=== PATIENT | male | born 1985 | race Caucasian/White ===

== ENCOUNTER 2020-04-29 15:27 | Inpatient (IN) | payer SELFPAY ==
[~2020-04-29] VITALS: Ht 182.9 cm; Wt 96.2 kg
[~2020-04-29 15:27] MED LIST: CLINDAMYCIN PHOSPHATE 900 MG/6 ML VIAL IM ONE; DEXAMETHASONE SOD PHOSPHATE 4 MG INJ IV ONE; GLYCOPYRROLATE 0.2 MG/ML VIAL IJ ONE; LIDOCAINE-MPF 2% 5 ML VIAL IJ ONE; METOCLOPRAMIDE HCL 10 MG/2 ML VIAL IV ONE; NEOSTIGMINE METHYLSULFATE 10 MG/10 ML VIAL IM ONE; ONDANSETRON 4 MG/2 ML VIAL IV ONE; PROPOFOL 200 MG/20 ML BOTTLE IV ONE; SEVOFLURANE 250 ML BOTTLE IH ONE
--- NOTE | 2020-04-29 16:23 | NUR ---
PT IS IN ROOM #1A. DR KOEHLER EVALUATED THE PT.
[2020-04-29 17:34] LABS: BASOPHILS # (AUTO) 0.1 K/uL (0.0-8.0); BASOPHILS % (AUTO) 0.6 % (0.0-2.0); EOSINOPHILS # (AUTO) 0.1 K/uL (0.0-0.7); EOSINOPHILS % (AUTO) 0.6 % (0.0-7.0); HEMOGLOBIN 15.6 g/dL (12.5-16.3); LYMPHOCYTES # (AUTO) 2.5 K/uL (20.0-40.0); LYMPHOCYTES % (AUTO) 14.8 % (20.5-51.5); MEAN CORPUSCULAR HEMOGLOBIN 30.9 uug (23.8-33.4); MEAN CORPUSCULAR HGB CONC 35 g/dL (32.5-36.3); MEAN CORPUSCULAR VOLUME 89.3 fL (73.0-96.2); MONOCYTES # (AUTO) 0.9 K/uL (2.0-10.0); MONOCYTES % (AUTO) 5.6 % (0.0-11.0); NEUTROPHILS # (AUTO) 13.1 K/uL (1.8-8.9); NEUTROPHILS % (AUTO) 78.4 % (38.5-71.5); PLATELET COUNT (AUTO) 262 K/uL (152-348); RED BLOOD CELL COUNT(AUTO) 5.04 MIL/uL (4.06-5.63); WHITE BLOOD COUNT (AUTO) 16.7 K/uL (3.6-10.2)
[2020-04-29 17:42] LABS: CARBON DIOXIDE 27 mmol/L (21-32); CHLORIDE 100 mmol/L (98-107); CREATININE 0.8 mg/dL (0.6-1.3); GLUCOSE 128 mg/dL (74-106); POTASSIUM 3.6 mmol/L (3.5-5.1); UREA NITROGEN, BLOOD 14 mg/dL (7-18)
[2020-04-29 17:55] LABS: ALANINE AMINOTRANSFERASE 143 U/L (16-63); ALKALINE PHOSPHATASE 74 U/L (50-136); ASPARTATE AMINOTRANSFERASE 44 U/L (15-37); BILIRUBIN,DIRECT < 0.1 mg/dL (0.0-0.2); BILIRUBIN,TOTAL 0.3 mg/dL (0.2-1.0); TOTAL PROTEIN, SERUM 8.2 g/dL (6.4-8.2)
[2020-04-29] MEDS ORDERED: HYDROMORPHONE 1 MG/1 ML DISP.SYRIN IV ONE (19:00)
[2020-04-29] MEDS ORDERED: ONDANSETRON 4 MG/2 ML VIAL IV ONE (19:00)
--- NOTE | 2020-04-29 19:11 | NUR ---
REPORT GIVEN TO DRUM SEALERCLOTHES SHAKER.
[2020-04-29] MEDS ORDERED: HYDROMORPHONE 1 MG/1 ML DISP.SYRIN ONE (19:23)
[2020-04-29] MEDS ORDERED: ONDANSETRON 4 MG/2 ML VIAL ONE (19:23)
[2020-04-29] MEDS ORDERED: ETOMIDATE 20 MG/10 ML VIAL ONE ×2 (19:33→19:56)
--- NOTE | 2020-04-29 19:40 | NUR ---
Dr. Brown, 2RNs, Respiratory therapist at bedside. Consent signed for moderate sedation for chest tube insertion.
[2020-04-29] MEDS ORDERED: ETOMIDATE 20 MG/10 ML VIAL IV ONE (19:45)
[2020-04-29] MEDS: ETOMIDATE 20 MG/10 ML VIAL IV ONE ×2 (19:45→19:54)
--- NOTE | 2020-04-29 20:15 | NUR ---
Chest tube inserted by Dr. Brown. xray at [facility] procedure
--- NOTE | 2020-04-29 20:57 | NUR ---
Adria Leone ADJUTANT GENERAL at bedside
[2020-04-29] MEDS ORDERED: MAGNESIUM HYDROXIDE 30 ML LIQUID UDC PO PRN (21:30)
[2020-04-29] MEDS ORDERED: CEFTRIAXONE 1 G in IV DEXTROSE 5% 50 ML IV SCH (21:30)
[2020-04-29] MEDS ORDERED: ONDANSETRON 4 MG/2 ML VIAL IV PRN (21:30)
[2020-04-29] MEDS: MORPHINE SULFATE 2 MG/1 ML DISP.SYRIN IV PRN (21:40)
--- NOTE | 2020-04-29 21:53 | NUR ---
Pt. admitted to Telemetry, under care of Adria Leone. Diagnosis: Spontaneous Pneumothorax. Belongs List completed. Report given to inpatient nurse
[2020-04-29 23:30] VITALS: BP 137/80
[2020-04-30] MEDS: HYDROCODONE/APAP 5-325MG TABLET PO PRN (00:13)
[2020-04-30] MEDS: DOCUSATE SODIUM 100 MG CAPSULE PO SCH (02:41)
[2020-04-30 04:00] VITALS: BP 145/90
--- NOTE | 2020-04-30 06:52 | NUR ---
Patient was titrated down from 4L to Room air. No respiratory distress noted, no dyspnea reported, no SOB noted. 97% on RA. Lung sounds remain severely diminished in lower lobes.
[2020-04-30 08:22] LABS: BASOPHILS % (AUTO) 0.3 % (0.0-2.0); EOSINOPHILS % (AUTO) 0.5 % (0.0-7.0); HEMATOCRIT 42.3 % (36.7-47.1); HEMOGLOBIN 14.5 g/dL (12.5-16.3); LYMPHOCYTES # (AUTO) 2.2 K/uL (20.0-40.0); LYMPHOCYTES % (AUTO) 23.7 % (20.5-51.5); MEAN CORPUSCULAR HEMOGLOBIN 31.3 uug (23.8-33.4); MEAN CORPUSCULAR HGB CONC 34 g/dL (32.5-36.3); MONOCYTES # (AUTO) 0.8 K/uL (2.0-10.0); MONOCYTES % (AUTO) 8.5 % (0.0-11.0); NEUTROPHILS # (AUTO) 6.3 K/uL (1.8-8.9); PLATELET COUNT (AUTO) 218 K/uL (152-348); RED BLOOD CELL COUNT(AUTO) 4.65 MIL/uL (4.06-5.63); WHITE BLOOD COUNT (AUTO) 9.4 K/uL (3.6-10.2)
[2020-04-30 08:29] LABS: BILIRUBIN,TOTAL 0.5 mg/dL (0.2-1.0); CREATININE 0.9 mg/dL (0.6-1.3); MAGNESIUM 2.4 mg/dL (1.8-2.4); PHOSPHOROUS 3.9 mg/dL (2.5-4.9); POTASSIUM 3.5 mmol/L (3.5-5.1); TOTAL PROTEIN, SERUM 7.2 g/dL (6.4-8.2)
[2020-04-30 08:38] LABS: THYROID STIMULATING HORMONE 2.327 mIU/mL (0.358-3.740)
[2020-04-30 12:04] VITALS: BP 117/72
[2020-04-30 15:57] VITALS: BP 122/74
--- NOTE | 2020-04-30 19:00 | NUR ---
Patient received from AM nurse. No reports of pain, no distress. Patients chest tube in place, dressing dry. O2 @ 6L via Nasal Canula. Non-remarkable findings relative to this patient upon assessment. No dyspnea. Afebrile. Patient educated to call for help and use urinal. Will continue to monitor and assess.
[2020-04-30 20:12] VITALS: BP 126/69
[2020-05-01 04:15] VITALS: BP 113/80
--- NOTE | 2020-05-01 05:18 | NUR ---
Patient is a pleasant 34 y/o male. Slept great throughout the night. No calls for pain medication, no reports of pain/distress. Only awakening to ask for a blanket. Chest tube in place on right side, 20 slovenian, dry and intact. Draining into the pleural-evac drain, no kinks, or leaks. O2 running at 6L via Nasal Canula per MD order. Will endorse to AM nurse.
[2020-05-01 06:43] LABS: BASOPHILS % (AUTO) 0.2 % (0.0-2.0); EOSINOPHILS # (AUTO) 0.1 K/uL (0.0-0.7); EOSINOPHILS % (AUTO) 1.2 % (0.0-7.0); HEMATOCRIT 44.1 % (36.7-47.1); HEMOGLOBIN 15.1 g/dL (12.5-16.3); LYMPHOCYTES # (AUTO) 2.5 K/uL (20.0-40.0); LYMPHOCYTES % (AUTO) 23.8 % (20.5-51.5); MEAN CORPUSCULAR HEMOGLOBIN 31.3 uug (23.8-33.4); MEAN CORPUSCULAR HGB CONC 34 g/dL (32.5-36.3); MEAN CORPUSCULAR VOLUME 91.5 fL (73.0-96.2); MONOCYTES # (AUTO) 0.7 K/uL (2.0-10.0); MONOCYTES % (AUTO) 6.4 % (0.0-11.0); NEUTROPHILS # (AUTO) 7.2 K/uL (1.8-8.9); NEUTROPHILS % (AUTO) 68.4 % (38.5-71.5); PLATELET COUNT (AUTO) 233 K/uL (152-348); RED BLOOD CELL COUNT(AUTO) 4.82 MIL/uL (4.06-5.63); WHITE BLOOD COUNT (AUTO) 10.5 K/uL (3.6-10.2)
[2020-05-01 06:54] LABS: CREATININE 0.9 mg/dL (0.6-1.3); POTASSIUM 4.3 mmol/L (3.5-5.1)
--- NOTE | 2020-05-01 10:00 | NUR ---
PATIENT C/O DRY NOSTRILS. HUMIDIFIER PLACED ON. INSTRUCTED GROUP HOME WORKER WANTS HIM TO BE ON 6L. MED PO FOR C/O PAIN RIGHT CHEST WITH GOOD EFFECT AFTER 45 MINUTES.
[2020-05-01] MEDS: HYDROCODONE/APAP 5-325MG TABLET PO PRN ×2 (11:16→20:46)
[2020-05-01 11:54] VITALS: BP 124/75
--- NOTE | 2020-05-01 12:30 | NUR ---
C/O CHEST PAIN AND SOB. SEEN BY DR. TARIQ. CXR & EKG DONE STAT. LUIS DAI HERE. C/O CONSTIPATION. INSTRUCTED TO WAIT FOR ORDERS FOR LAXATIVE. INSTRUCTED NOT TO BEAR DOWN. VERBALIZED UNDERSTANDING.
--- NOTE | 2020-05-01 13:30 | NUR ---
RESULTS OF CXR AND EKG ACKNOLEDGED BY MDS. CT ORDERED.
[2020-05-01] MEDS ORDERED: BISACODYL 5 MG TABLET.DR PO ONE (14:00)
[2020-05-01] MEDS ORDERED: DOCUSATE SODIUM 100 MG CAPSULE PO SCH (14:00)
[2020-05-01] MEDS ORDERED: MAGNESIUM HYDROXIDE 30 ML LIQUID UDC PO ONE (14:00)
--- NOTE | 2020-05-01 15:00 | NUR ---
WORRIED & UPSET THAT HE HAS NO INSURANCE. HE WILL NOT BE ABLE TO PAY, & HAS NO JOB. TYLER CALLED & PATIENT ASSURED THAT EMERGENCY MEDICAL HAS BEEN INITIATED FOR HIM.
[2020-05-01] MEDS ORDERED: LACTULOSE 20 G/30 ML LIQUID UDC PO ONE (15:15)
[2020-05-01 15:45] VITALS: BP 117/72
[2020-05-01 20:00] VITALS: BP 123/70
[2020-05-01] MEDS ORDERED: diphenhydrAMINE 50 MG CAPSULE PO PRN (20:00)
[2020-05-01] MEDS: DOCUSATE SODIUM 100 MG CAPSULE PO SCH (20:46)
[2020-05-02] VITALS: BP 136/76
--- NOTE | 2020-05-02 01:36 | NUR ---
had a BM; bed bath rendered by CALL WORKER PERSON.
--- NOTE | 2020-05-02 07:00 | NUR ---
Received patient in stable condition. Will continue to monitor, continue plan of care, and assess.
--- NOTE | 2020-05-02 07:00 | NUR ---
Pt rested well in between care; no acute distress; placed on continuous pulse ox; medicated pt's pain x1; needs attended;
[2020-05-02 07:26] LABS: CREATININE 0.8 mg/dL (0.6-1.3); POTASSIUM 3.9 mmol/L (3.5-5.1)
[2020-05-02 07:29] LABS: BASOPHILS % (AUTO) 0.4 % (0.0-2.0); EOSINOPHILS # (AUTO) 0.1 K/uL (0.0-0.7); EOSINOPHILS % (AUTO) 1.4 % (0.0-7.0); HEMATOCRIT 42.5 % (36.7-47.1); HEMOGLOBIN 14.6 g/dL (12.5-16.3); LYMPHOCYTES # (AUTO) 2.2 K/uL (20.0-40.0); LYMPHOCYTES % (AUTO) 22.2 % (20.5-51.5); MEAN CORPUSCULAR HEMOGLOBIN 31.2 uug (23.8-33.4); MEAN CORPUSCULAR HGB CONC 35 g/dL (32.5-36.3); MEAN CORPUSCULAR VOLUME 90.4 fL (73.0-96.2); MONOCYTES # (AUTO) 0.7 K/uL (2.0-10.0); MONOCYTES % (AUTO) 6.9 % (0.0-11.0); NEUTROPHILS # (AUTO) 6.9 K/uL (1.8-8.9); NEUTROPHILS % (AUTO) 69.1 % (38.5-71.5); PLATELET COUNT (AUTO) 230 K/uL (152-348)
--- NOTE | 2020-05-02 08:00 | NUR ---
Received call from Dr. Schofield in radiology that patients Right Pneumothorax has worsened. Contacted Dr. Friend and Dr. Collins with news. Will follow up BRITTANY
--- NOTE | 2020-05-02 08:05 | NUR ---
Patients chest tube was dislodged and the drainage system wasnt functioning as intended. Problem fixed. Will continue to monitor, continue plan of care, and assess.
[2020-05-02 12:00] VITALS: BP 125/77
--- NOTE | 2020-05-02 12:29 | NUR ---
CXR results and findings are in: "Near complete resolution of right-sided pneumothorax with chest tube remains in place". Will continue to monitor and assess.
[2020-05-02 14:00] VITALS: BP 122/79
[2020-05-02 16:00] VITALS: BP 122/79
[2020-05-02 19:51] VITALS: BP 133/85
[2020-05-02] MEDS: DOCUSATE SODIUM 100 MG CAPSULE PO SCH (20:35)
[2020-05-03 00:42] VITALS: BP 130/75
[2020-05-03 05:15] VITALS: BP 118/73
[2020-05-03 06:30] LABS: BASOPHILS % (AUTO) 0.5 % (0.0-2.0); EOSINOPHILS # (AUTO) 0.3 K/uL (0.0-0.7); EOSINOPHILS % (AUTO) 3.8 % (0.0-7.0); HEMATOCRIT 42.3 % (36.7-47.1); HEMOGLOBIN 14.8 g/dL (12.5-16.3); LYMPHOCYTES # (AUTO) 2.7 K/uL (20.0-40.0); LYMPHOCYTES % (AUTO) 31.6 % (20.5-51.5); MEAN CORPUSCULAR HEMOGLOBIN 31.6 uug (23.8-33.4); MEAN CORPUSCULAR HGB CONC 35 g/dL (32.5-36.3); MEAN CORPUSCULAR VOLUME 90.2 fL (73.0-96.2); MONOCYTES # (AUTO) 0.7 K/uL (2.0-10.0); MONOCYTES % (AUTO) 7.7 % (0.0-11.0); NEUTROPHILS # (AUTO) 4.8 K/uL (1.8-8.9); NEUTROPHILS % (AUTO) 56.4 % (38.5-71.5); PLATELET COUNT (AUTO) 230 K/uL (152-348); RED BLOOD CELL COUNT(AUTO) 4.69 MIL/uL (4.06-5.63); WHITE BLOOD COUNT (AUTO) 8.5 K/uL (3.6-10.2)
--- NOTE | 2020-05-03 06:31 | NUR ---
pt transferred to room 304; no acute distress; VSS; denies any pain; oscillation on the chest tube noted; continue to monitor; continue plan of care.
[2020-05-03 06:58] LABS: CREATININE 0.9 mg/dL (0.6-1.3); POTASSIUM 3.7 mmol/L (3.5-5.1)
[2020-05-03 10:11] LABS: IMMUNOGLOBULIN E, TOTAL 73 IU/mL (6-495)
[2020-05-03 12:00] VITALS: BP 112/67
[2020-05-03 16:00] VITALS: BP 122/73
[2020-05-03 20:13] VITALS: BP 119/73
[2020-05-03] MEDS: DOCUSATE SODIUM 100 MG CAPSULE PO SCH (20:17)
--- NOTE | 2020-05-03 20:59 | NUR ---
Received patient resting in bed. AAOx4. No s/s of acute distress noted at this time. Pt on 6L NC denies SOB and pain. Right side chest tube intact, dressing is dry. Right AC IV patent and intact. nuclear monitoring technician in place NSR. Safety measures in place and will continue to monitor.
[2020-05-04 00:03] VITALS: BP 120/80
[2020-05-04 05:32] VITALS: BP 111/75
[2020-05-04 07:09] LABS: BASOPHILS % (AUTO) 0.5 % (0.0-2.0); EOSINOPHILS # (AUTO) 0.3 K/uL (0.0-0.7); EOSINOPHILS % (AUTO) 4.1 % (0.0-7.0); HEMATOCRIT 41.7 % (36.7-47.1); HEMOGLOBIN 14.4 g/dL (12.5-16.3); LYMPHOCYTES # (AUTO) 2.3 K/uL (20.0-40.0); LYMPHOCYTES % (AUTO) 30.7 % (20.5-51.5); MEAN CORPUSCULAR HEMOGLOBIN 31.1 uug (23.8-33.4); MEAN CORPUSCULAR HGB CONC 35 g/dL (32.5-36.3); MEAN CORPUSCULAR VOLUME 90.2 fL (73.0-96.2); MONOCYTES # (AUTO) 0.5 K/uL (2.0-10.0); MONOCYTES % (AUTO) 6.8 % (0.0-11.0); NEUTROPHILS # (AUTO) 4.4 K/uL (1.8-8.9); NEUTROPHILS % (AUTO) 57.9 % (38.5-71.5); PLATELET COUNT (AUTO) 240 K/uL (152-348); RED BLOOD CELL COUNT(AUTO) 4.62 MIL/uL (4.06-5.63); WHITE BLOOD COUNT (AUTO) 7.6 K/uL (3.6-10.2)
[2020-05-04 07:23] LABS: CREATININE 0.9 mg/dL (0.6-1.3)
--- NOTE | 2020-05-04 09:15 | NUR ---
PATIENT SEEN AND EXAMINED BY DR ALMARAZ WITH NEW ORDERS AND NOTED
[2020-05-04 11:49] VITALS: BP 123/87
--- NOTE | 2020-05-04 14:00 | NUR ---
ASSISTED TO THE BEDSIDE COMMODE PATIENT HAD AN EXTRA LARGE BOWEL MOVEMENT AND BACK TO BED CHEST TUBE INTACT WITH WATER ADDED TO LEVEL OF 20 OXYGEN IN PROGRESS ORDERED WITH NO SOB NOT IN DISTRESS AT THIS TIME
[2020-05-04 15:44] VITALS: BP 123/70
--- NOTE | 2020-05-04 20:00 | NUR ---
Report received. Patient CARLOS NAD noted. R Chest tube to water sealed suction; with minimal sanguineous drainage. No crepitus noted. Patient with soreness to chest tube site; refused any pain medication for now. Plan of care discussed; patient verbalized understanding. O2 6L NC continuously. Addendum: 05/04/20 at 2350 by FLORIDALMA MEDINA RN Amended: Links added.
[2020-05-04] MEDS: DOCUSATE SODIUM 100 MG CAPSULE PO SCH (20:19)
[2020-05-04 20:34] VITALS: BP 131/81
[2020-05-05 00:40] VITALS: BP 122/74
[2020-05-05 04:00] VITALS: BP 123/75
--- NOTE | 2020-05-05 06:44 | NUR ---
Uneventful night. VS stable. Chest tube continuously to water sealed suction. No air leaks, no subcutaneous emphysema. Dressing dry and intact.
[2020-05-05 07:02] LABS: BASOPHILS % (AUTO) 0.5 % (0.0-2.0); EOSINOPHILS # (AUTO) 0.3 K/uL (0.0-0.7); EOSINOPHILS % (AUTO) 3.7 % (0.0-7.0); HEMATOCRIT 39.9 % (36.7-47.1); HEMOGLOBIN 13.9 g/dL (12.5-16.3); LYMPHOCYTES # (AUTO) 2.2 K/uL (20.0-40.0); LYMPHOCYTES % (AUTO) 26.2 % (20.5-51.5); MEAN CORPUSCULAR HEMOGLOBIN 31.2 uug (23.8-33.4); MEAN CORPUSCULAR HGB CONC 35 g/dL (32.5-36.3); MEAN CORPUSCULAR VOLUME 89.6 fL (73.0-96.2); MONOCYTES # (AUTO) 0.6 K/uL (2.0-10.0); MONOCYTES % (AUTO) 7.3 % (0.0-11.0); NEUTROPHILS # (AUTO) 5.2 K/uL (1.8-8.9); NEUTROPHILS % (AUTO) 62.3 % (38.5-71.5); PLATELET COUNT (AUTO) 238 K/uL (152-348); RED BLOOD CELL COUNT(AUTO) 4.45 MIL/uL (4.06-5.63); WHITE BLOOD COUNT (AUTO) 8.3 K/uL (3.6-10.2)
[2020-05-05 07:29] LABS: CREATININE 0.9 mg/dL (0.6-1.3); POTASSIUM 3.9 mmol/L (3.5-5.1)
[2020-05-05 11:31] VITALS: BP 126/77
--- NOTE | 2020-05-05 14:33 | NUR ---
patient is alert, oriented x4, verbally responsive, no sob, resp even nonlabored, skin warm and dry to touch, chest tube intact, suction is off, no distress noted.
[2020-05-05 16:00] VITALS: BP 116/72
--- NOTE | 2020-05-05 18:20 | NUR ---
no drainage noted from the chest tube during shift, suction is off as ordered by dr walker
--- NOTE | 2020-05-05 18:24 | NUR ---
patient is alert, oriented x4, verbally responsive, no sob, resp even nonlabored, skin warm and dry to touch, no distress noted, able to tolerate meals, no nausea, no vomiting, continue to monitor
[2020-05-05] MEDS: DOCUSATE SODIUM 100 MG CAPSULE PO SCH (20:11)
[2020-05-05] MEDS: HYDROCODONE/APAP 5-325MG TABLET PO PRN (20:14)
[2020-05-05 20:24] VITALS: BP 137/84
[2020-05-06] VITALS: BP 117/70
[2020-05-06 04:00] VITALS: BP 125/81
--- NOTE | 2020-05-06 07:16 | NUR ---
pt rested well; uneventful night; c/o pain x1 and medicated with Joanna.
[2020-05-06 07:34] VITALS: BP 114/71
--- NOTE | 2020-05-06 09:12 | NUR ---
Chest tube clamped per Dr. Collins's order. Will continue monitor
[2020-05-06 11:01] VITALS: BP 112/58
[2020-05-06] MEDS ORDERED: HYDROCODONE/APAP 5-325MG TABLET PO PRN (12:30)
[2020-05-06] MEDS ORDERED: KETOROLAC TROMETHAMINE 15 MG INJ IVP ONE (12:45)
[2020-05-06] MEDS: DOCUSATE SODIUM 100 MG CAPSULE PO SCH ×2 (13:26→20:04)
[2020-05-06 15:34] VITALS: BP 108/63
--- NOTE | 2020-05-06 19:30 | NUR ---
RECEIVED PT AWAKE, ALERT AND ORIENTEDX4. PT IN NO ACUTE DISTRESS. PT IN 6L OXYGEN VIA NASAL CANNULA. PT BREATHING WITH NO DISTRESS. CHEST TUBE CLAMP. NO AIR LEAK SEEN.IV INTACT. SAFETY AND COMFORT PROVIDED. WILL CONTINUE TO MONITOR.
--- NOTE | 2020-05-06 19:38 | NUR ---
Patient stable throughout shift, on O2 @ 6L with no SOB or distress, Chest tube clamped and complained only of slight pain on right chest when trying to burp but alleviated with Toradol. On tele SR, denied chest pain. no other complaints at this time
[2020-05-06 20:03] VITALS: BP 118/78
[2020-05-06] MEDS: MORPHINE SULFATE 2 MG/1 ML DISP.SYRIN IV PRN (23:58)
[2020-05-07] VITALS (10 sets, daily range): BP systolic 114–151; BP diastolic 65–88
--- NOTE | 2020-05-07 00:30 | NUR ---
MORPHINE 2MG PRN GIVEN FOR 6/10 PAIN ON RIGHT SHOULDER, CLAVICLE AND CHEST. PT TOLERATED IT WELL. AFTER 30 MINUTES PT STATED HE FELT BETTER AND PAIN MEDICATION WOULD MAKE HIM FEEL COMFORTABLE WHILE SLEEPING.PT STABLE. WILL CONTINUE TO MONITOR.
--- NOTE | 2020-05-07 06:17 | NUR ---
PT SLEPT COMFORTABLY.PT IN NO ACUTE RESPIRATORY DISTRESS.CHEST TUBE CLAMPED. PRESCRIBED MEDICATION GIVEN AND PT TOLERATED IT WELL. SAFETY AND COMFORT PROVIDED. ALL NEEDS ARE MET. WILL ENDORSE TO INCOMING NURSE FOR CONTINUITY OF CARE.
[2020-05-07] MEDS: DOCUSATE SODIUM 100 MG CAPSULE PO SCH ×2 (08:46→20:33)
[2020-05-07] MEDS: NEOMY/BACITRAC/POLYMI OINT 28.35 GM TUBE TOP SCH (09:34)
--- NOTE | 2020-05-07 14:25 | NUR ---
Pt SOB, complaining of pressure on right rib that worsens with breathing. Mining Manager and pulmo notified. Stat cxray ordered and carried out.
--- NOTE | 2020-05-07 16:15 | NUR ---
CXR resulted. Pt put on 15L o2 nonrebreather w/ spo2 >93%. Pt appear comfortable at this time. Awaiting orders
[2020-05-07] MEDS ORDERED: HYDROMORPHONE 1 MG/1 ML DISP.SYRIN IVP ONE (17:30)
[2020-05-07] MEDS ORDERED: ONDANSETRON 4 MG/2 ML VIAL IV ONE (17:30)
--- NOTE | 2020-05-07 18:20 | NUR ---
Patient is transfer from the tele floor on non-rebreather stable at this time saturation of 95%. howie was able to talk to patient and inform plan of care. Cardiothoracic Dr. Magana has been consulted and plan for surgery tomorrow. Transferred to ICU for any worsening symptoms and if need call ER for Chest tube placement of pigtail if any worsening. Patient will be NPO after midnight. Will continue monitoring patient.
[2020-05-07] MEDS ORDERED: IV NS 1000 ML 1,000 ML IV PRN (19:45)
[2020-05-07] MEDS: ACETAMINOPHEN 325 MG TABLET PO PRN (19:59)
--- NOTE | 2020-05-07 20:00 | NUR ---
RECEIVED PT. ALERT & ORIENTED X4. ON O2 @ 100% NRM W/ O2 SAT OF 98%. NO SOB NOTED @ THIS TIME. HEP LOCK INTACT & PATENT ON RAC. TEMP-100.3 AXILLARY, TYLENOL 650MG GIVEN PO ORDERED. PT DRINKING FLUIDS ADEQ. WILL NPO AFTER MIDNIGHT. NOT IN ANY DISTRESS.
--- NOTE | 2020-05-07 22:00 | NUR ---
REPOSITIONED SELF. NOT IN ANY DISTRESS.
[2020-05-08] VITALS (20 sets, daily range): BP systolic 113–154; BP diastolic 56–89
--- NOTE | 2020-05-08 | NUR ---
NPO AFTER MN. V/S STABLE. AFEBRILE.
--- NOTE | 2020-05-08 04:00 | NUR ---
AM CARE DONE BY HIMSELF W/ MINIMAL ASSIST. ORAL CARE DONE. REPOSITIONED BY HIMSELF W/ HOB ELEVATED.
--- NOTE | 2020-05-08 05:36 | NUR ---
RESTING QUITELY. V/S STABLE. NOT IN ANY DISTRESS.
--- NOTE | 2020-05-08 06:30 | NUR ---
CALLED DR COTO RE:CXR RESULT DONE @ 0600. STATED TO CALL DR ALMARAZ IN 30 MINS TO RELAY THE RESULT OF CXR.
--- NOTE | 2020-05-08 07:00 | NUR ---
CALLED DR. ALMARAZ MADE AWARE OF CXR RESULT.
--- NOTE | 2020-05-08 07:45 | NUR ---
PER DR. BANG IF PATIENT REMAINS STABLE WAIT FOR DR GTZ, AND IF PATIENT BECOMES UNSTABLE HAVE ER PLACE CHEST TUBE.
[2020-05-08] MEDS: DOCUSATE SODIUM 100 MG CAPSULE PO SCH ×2 (08:17→21:00)
--- NOTE | 2020-05-08 08:41 | NUR ---
PATIENT SWITCHED TO 45L/ 91% HIGH FLOW PER PATIENT REQUEST DUE TO MOUTH AND NOSE BEING REALLY DRY. PATIENT REMAINS STABLE NO DISTRESS OR HAVING ANY PAIN. PATIENT IS SATURATING 96%.
[2020-05-08] MEDS: NEOMY/BACITRAC/POLYMI OINT 28.35 GM TUBE TOP SCH (08:57)
--- NOTE | 2020-05-08 09:40 | NUR ---
UPDATED JACKY INFORMED DR ALMARAZ IS AWARE OF CHEST XRAY AND WAITING FOR DR MOSQUEDA TO SEE PATIENT.
--- NOTE | 2020-05-08 09:51 | NUR ---
DR. MOSQUEDA IN THE UNIT TO SEE PATIENT. SURGERY FOR VATS PROCEDURE WILL BE OBTAINED PATIENTS AGREES AND WILL BE SCHEDULED LATER TODAY.
--- NOTE | 2020-05-08 10:12 | NUR ---
SURGERY HAS BEEN SCHEDULED FOR 1529 TODAY. CONSENT HAS BEEN SIGNED
--- NOTE | 2020-05-08 14:12 | NUR ---
pre op nurse called for report will come to clam picker patient in 20 minutes.
[2020-05-08] MEDS ORDERED: MIDAZOLAM HCL 2 MG/2 ML VIAL ONE (15:29)
[2020-05-08] MEDS ORDERED: FENTANYL CITRATE 250 MCG/5 ML AMPUL ONE (15:29)
[2020-05-08] MEDS ORDERED: ROCURONIUM BROMIDE 50 MG/5 ML VIAL ONE (15:30)
[2020-05-08] MEDS ORDERED: HYDROMORPHONE 2 MG/1 ML DISP.SYRIN ONE (15:30)
--- NOTE | 2020-05-08 15:30 | NUR ---
patient taken to pre-op at this time by pr-op nurses. patient was placed on monitor and nonrebreather taken down.
[2020-05-08] MEDS ORDERED: CLINDAMYCIN PHOSPHATE 600 MG/4 ML VIAL ONE (15:45)
[2020-05-08] MEDS ORDERED: MEPERIDINE 25 MG/1 ML DISP.SYRIN ONE (17:17)
--- NOTE | 2020-05-08 18:16 | NUR ---
MARY FROM [facility] CALLED WILL BE BRINGING THE PATIENT BACK.
--- NOTE | 2020-05-08 18:44 | NUR ---
patient brought back to ICU. patient is on 8l face mask saturating 89%. changed patient back on high flow 45L 60%. patient is not in any distress. no pain at this time. patient has 20cm pleura vac to suction with 50ml serosanguineous drainage to the right chest wall. all orders resumed.
--- NOTE | 2020-05-08 19:00 | NUR ---
Received patient in bed awake and alert. Patient had just returned @1840 from surgery. Patient had a right VATS and bleb resection of RUL blebs procedure performed by MAYLIN MOSQUEDA MD. Patient has 20cm pleura vac to suction with 50ml serosanguineous drainage to the right chest wall.Patient is on high flow 45L 85%, SAT 90%. Patient is not in any distress. No pain at this time. Patient has 20cm pleura vac to suction with 50ml serosanguineous drainage to the right chest wall. Patient is overall in good spirits, and feels much better than prior to surgery. Encouraged his to use his incentive spirometer as his oxygenation is still lower than i would like it. Patient is taking in adequate fluids and eating snacks. No nausea or vomiting reported.
[2020-05-09] VITALS (12 sets, daily range): BP systolic 101–139; BP diastolic 64–84
[2020-05-09] MEDS: ACETAMINOPHEN 325 MG TABLET PO PRN ×2 (01:06→23:59)
[2020-05-09] MEDS: MORPHINE SULFATE 2 MG/1 ML DISP.SYRIN IV PRN (01:06)
[2020-05-09 05:44] LABS: BASOPHILS % (AUTO) 0.2 % (0.0-2.0); HEMATOCRIT 39.9 % (36.7-47.1); HEMOGLOBIN 14.1 g/dL (12.5-16.3); LYMPHOCYTES # (AUTO) 1.4 K/uL (20.0-40.0); LYMPHOCYTES % (AUTO) 9.1 % (20.5-51.5); MEAN CORPUSCULAR HEMOGLOBIN 31.3 uug (23.8-33.4); MEAN CORPUSCULAR HGB CONC 35 g/dL (32.5-36.3); MEAN CORPUSCULAR VOLUME 88.3 fL (73.0-96.2); MONOCYTES # (AUTO) 0.9 K/uL (2.0-10.0); MONOCYTES % (AUTO) 5.8 % (0.0-11.0); NEUTROPHILS # (AUTO) 13.2 K/uL (1.8-8.9); NEUTROPHILS % (AUTO) 84.9 % (38.5-71.5); PLATELET COUNT (AUTO) 322 K/uL (152-348); RED BLOOD CELL COUNT(AUTO) 4.52 MIL/uL (4.06-5.63); WHITE BLOOD COUNT (AUTO) 15.5 K/uL (3.6-10.2)
[2020-05-09 06:01] LABS: CREATININE 0.9 mg/dL (0.6-1.3); MAGNESIUM 2.2 mg/dL (1.8-2.4); PHOSPHOROUS 4.4 mg/dL (2.5-4.9); POTASSIUM 4.1 mmol/L (3.5-5.1)
[2020-05-09] MEDS: DOCUSATE SODIUM 100 MG CAPSULE PO SCH ×2 (07:57→21:27)
[2020-05-09] MEDS: NEOMY/BACITRAC/POLYMI OINT 28.35 GM TUBE TOP SCH (08:02)
[2020-05-09] MEDS: levoFLOXacin 500 MG/D5W 500 MG in PREMIXED 1 EACH IV SCH (09:51)
--- NOTE | 2020-05-09 10:50 | NUR ---
Dr. Almanza here to see pt. Full report given. No new orders received.
--- NOTE | 2020-05-09 11:57 | NUR ---
Dr. Trinh here to see pt. Full report given. New orders received. Addendum: 05/09/20 at 1331 by ALEX MAK RN Pt chest tube off low-suction and only to gravity per Dr. Trinh.
--- NOTE | 2020-05-09 14:31 | NUR ---
GREGORIO Gonzalez here to see pt. Full report given. New orders received. Okay to downgrade to telemetry status.
[2020-05-09] MEDS ORDERED: KETOROLAC TROMETHAMINE 15 MG INJ IVP ONE (15:00)
--- NOTE | 2020-05-09 19:00 | NUR ---
received patient awake , oriented able to follow command , on 5 l nc with humidifier , saturating 95 % , right chest tube on water seal , intact , no bleeding , no crepitus noted , continent , denies pain or distress at this time
--- NOTE | 2020-05-09 19:45 | NUR ---
report given to rodríguez , patient history , dx , plan of care , procedures done
--- NOTE | 2020-05-09 20:45 | NUR ---
patient was picked up accompanied by nurse , oxygen and chest tube intact and on water seal
--- NOTE | 2020-05-09 20:50 | NUR ---
Received patient from CCU. Received report from Gina. Right chest tube intact. Pt stable on 5L NC denies SOB. VSS. Will continue to monitor.
[2020-05-10 04:00] VITALS: BP 119/63
--- NOTE | 2020-05-10 06:00 | NUR ---
Received call from radiology, CXR noted increased visibility of right pneumothorax as compared to yesterday. Notified GREGORIO Finn. No new orders at this time.
[2020-05-10 06:28] LABS: BASOPHILS # (AUTO) 0.1 K/uL (0.0-8.0); BASOPHILS % (AUTO) 0.5 % (0.0-2.0); EOSINOPHILS # (AUTO) 0.2 K/uL (0.0-0.7); HEMATOCRIT 37.5 % (36.7-47.1); HEMOGLOBIN 13.2 g/dL (12.5-16.3); LYMPHOCYTES # (AUTO) 3.2 K/uL (20.0-40.0); LYMPHOCYTES % (AUTO) 29.7 % (20.5-51.5); MEAN CORPUSCULAR HEMOGLOBIN 31.5 uug (23.8-33.4); MEAN CORPUSCULAR HGB CONC 35 g/dL (32.5-36.3); MEAN CORPUSCULAR VOLUME 89.9 fL (73.0-96.2); MONOCYTES # (AUTO) 0.9 K/uL (2.0-10.0); MONOCYTES % (AUTO) 8.5 % (0.0-11.0); NEUTROPHILS # (AUTO) 6.3 K/uL (1.8-8.9); NEUTROPHILS % (AUTO) 59.3 % (38.5-71.5); PLATELET COUNT (AUTO) 279 K/uL (152-348); RED BLOOD CELL COUNT(AUTO) 4.17 MIL/uL (4.06-5.63); WHITE BLOOD COUNT (AUTO) 10.6 K/uL (3.6-10.2)
--- NOTE | 2020-05-10 07:08 | NUR ---
Pt resting in bed. No s/s of acute distress noted at this time. Pt on 5L NC, denies SOB. VSS. Safety measures in place will endorse to oncoming staff.
[2020-05-10 07:09] LABS: MAGNESIUM 2.3 mg/dL (1.8-2.4)
[2020-05-10] MEDS: NEOMY/BACITRAC/POLYMI OINT 28.35 GM TUBE TOP SCH (09:00)
[2020-05-10] MEDS: DOCUSATE SODIUM 100 MG CAPSULE PO SCH ×2 (09:09→20:10)
[2020-05-10] MEDS: levoFLOXacin 500 MG/D5W 500 MG in PREMIXED 1 EACH IV SCH (09:09)
--- NOTE | 2020-05-10 10:35 | NUR ---
DR. TORRES HERE. DC'D CHEST TUBE, & ONE STITCH APPLIED. O2 DC'D. INSTRUCTED T WAIT 30 MINS TO CHECK O2 SAT. IF STABLE WILL AMBULATE PATIENT.
[2020-05-10 11:45] VITALS: BP 122/69
[2020-05-10 15:38] VITALS: BP 130/75
--- NOTE | 2020-05-10 19:00 | NUR ---
Received patient from AM nurse. Patient stable. Safety measures in place. Will continue to monitor and assess.
[2020-05-10 19:37] VITALS: BP 118/65
[2020-05-10 20:52] VITALS: BP 101/70
[2020-05-10] MEDS: ACETAMINOPHEN 325 MG TABLET PO PRN (22:16)
[2020-05-11 00:09] VITALS: BP 108/63
[2020-05-11 04:20] VITALS: BP 113/73
[2020-05-11 07:46] VITALS: BP_SYST 117; BP_SYST 129; BP_DIAS 65; BP_DIAS 74
[2020-05-11] MEDS: DOCUSATE SODIUM 100 MG CAPSULE PO SCH (08:32)
[2020-05-11] MEDS: NEOMY/BACITRAC/POLYMI OINT 28.35 GM TUBE TOP SCH (08:34)
[2020-05-11] MEDS: levoFLOXacin 500 MG/D5W 500 MG in PREMIXED 1 EACH IV SCH (09:30)
[2020-05-11] MEDS ORDERED: levoFLOXacin 500 MG TABLET PO SCH (10:00)
[2020-05-11 10:34] VITALS: BP 115/62
[2020-05-11] MEDS ORDERED: levoFLOXacin PO (11:05)
--- NOTE | 2020-05-11 13:30 | NUR ---
PATIENT DISCHARGED SCHEDULED. VSS. DENIES PAIN OR SOB. NO S/S OF DISTRESS NOTED. BELONGINGS RETURNED TO PATIENT. IV REMOVED, NO S/S OF BLEEDING NOTED. ID BAND REMOVED. DISCHARGE EDUCATION DISCUSSED WITH PATIENT, PATIENT VERBALIZED UNDERSTANDING.
== END 2020-05-11 13:30 | disposition home or self-care (01) | DRG 163 ==
LOC: ER 15:28 → TELE3 22:00 → CCU 05-07 18:02 → TELE3 05-09 20:17 → TELE-TD3 05-10 07:54 → TELE3 05-10 17:31
PROVIDERS: ADMIT Nurse Practitioner Acute Care; ATTEND Nurse Practitioner Acute Care
PROC: 0W9930Z Drainage of Right Pleural Cavity with Drainage Device, Percutaneous Approach (ICD-10-PCS; principal; 2020-04-29)
PROC: 0BQC4ZZ Repair Right Upper Lung Lobe, Percutaneous Endoscopic Approach (ICD-10-PCS; 2020-05-08)
PROC: 0W9940Z Drainage of Right Pleural Cavity with Drainage Device, Percutaneous Endoscopic Approach (ICD-10-PCS; 2020-05-08)
DX: J93.83 Other pneumothorax (principal); J96.01 Acute respiratory failure with hypoxia; J15.9 Unspecified bacterial pneumonia; D68.69 Other thrombophilia; Z87.891 Personal history of nicotine dependence; R74.01 Elevation of levels of liver transaminase levels; R73.9 Hyperglycemia, unspecified; Z88.0 Allergy status to penicillin; D72.829 Elevated white blood cell count, unspecified; R07.9 Chest pain, unspecified
CPT/HCPCS: 36415; 70030-TC; 71045; 71250; 82785; 83735; 84100; 84443; 85025; 85730; 93005; A4217; A4663; G0378; G0500; J1100; J1170; J1885; J1956; J2175; J2250; J2270; J2405; J2765; J3010; J3490; J7030; J7040